=== PATIENT | female | born 1990 | race Caucasian/White ===

== ENCOUNTER 2024-03-17 13:03 | Emergency (ER) | payer MEDICAID ==
[~2024-03-17] VITALS: Ht 152.4 cm; Wt 45.4 kg
[2024-03-17 13:22] VITALS: O2SAT 99
[2024-03-17] MEDS ORDERED: LIDOCAINE HCL/PF 1% 10 MG/ML 5ML VIAL INFIL ONE (13:45)
[2024-03-17] MEDS ORDERED: BACITRACIN ZINC OINT UDPKT TOP ONE (13:45)
[2024-03-17] MEDS: BACITRACIN ZINC OINT UDPKT TOP NR (16:24)
[2024-03-17] MEDS: LIDOCAINE HCL/PF 1% 10 MG/ML 5ML VIAL INFIL NR (16:24)
[2024-03-17 16:25] VITALS: BP 117/72; PULSE 78; RESP 16; TEMP 37.00296; O2SAT 99
== END 2024-03-17 16:29 | disposition home or self-care (01) ==
LOC: ER 13:15
DX: S01.312A Laceration without foreign body of left ear, initial encounter (principal); D64.9 Anemia, unspecified; Z98.890 Other specified postprocedural states; Y08.89XA Assault by other specified means, initial encounter; Y93.89 Activity, other specified; Y92.89 Other specified places as the place of occurrence of the external cause; Y99.8 Other external cause status
CPT/HCPCS: 99284; 70450; 70486; 12011; J3490